=== PATIENT | female | born 1940 | race Caucasian/White ===

== ENCOUNTER 2017-09-04 10:09 | Emergency (ER) | payer OTHER, MEDICARE ==
[2017-09-04 10:14] VITALS: TEMP 98; BMI 21.4
--- NOTE | 2017-09-04 10:28 | PDOC ---
History of Present Illness - General Chief Complaint: Urinary Problem Stated Complaint: SENT BY PCP Time Seen by Provider: 09/04/17 10:27 History Source: Patient Exam Limitations: No Limitations - History of Present Illness Initial Comments: 09/04/17 12:33 Chief complaint: Hematuria, frequency, urgency and painful urination since 4 AM today History of present illness: Patient is a 77 year old female with history of hypertension here today complaining of hematuria, dysuria urgency and frequency that started this morning at 4 AM. Patient took one Cipro. Patient reports that she did have hematuria in the past. Patient is requesting that I speak with her primary care provider Dr. figueredo at [phone]. Patient denies any abdominal pain or any nausea, vomiting, back pain, chills or fever. Patient reports that since she urinated here she did not have any dysuria, just urgency and hematuria and frequency. Timing/Duration: intermittent Severity: moderate Associated Symptoms: reports: other (hematuria starting this morning with urgency, frequency, dysuria) Past History - Past Medical History Allergies/Adverse Reactions: Allergies Allergy/AdvReac Type Severity Reaction Status Date / Time No Known Allergies Allergy Verified 09/04/17 10:14 Home Medications: Ambulatory Orders Amlodipine Besylate [Norvasc -] 10 mg PO DAILY 09/04/17 Aspirin [ASA -] 81 mg PO DAILY 09/04/17 Calcium Carbonate/Vitamin D3 [Calcium 600 + Vit D Tablet] 1 each PO DAILY Cholecalciferol (Vitamin D3) [Vitamin D3] 3,000 unit PO DAILY 09/04/17 COPD: No HTN: Yes - Suicide/Smoking/Psychosocial Hx Smoking History: Never smoked Hx Alcohol Use: No Drug/Substance Use Hx: No Review of Systems - Review of Systems Able to Perform ROS?: Yes Constitutional: No: Symptoms Reported HEENTM: No: Symptoms Reported Respiratory: No: Symptoms reported Cardiac (ROS): No: Symptoms Reported ABD/GI: No: Symptoms Reported : Yes: Dysuria, Frequency, Hematuria, Urgency (since this morning ). No: Flank Pain Musculoskeletal: No: Symptoms Reported Integumentary: No: Symptoms Reported Neurological: No: Symptoms reported *Physical Exam - Vital Signs Last Vital Signs Temp Pulse Resp BP Pulse Ox 98.0 F 109 H 20 150/82 100 09/04/17 10:09 09/04/17 10:09 09/04/17 10:09 09/04/17 10:09 09/04/17 10:09 - Physical Exam General Appearance: Yes: Appropriately Dressed Respiratory/Chest: positive: Lungs Clear, Normal Breath Sounds. negative: Chest Tender, Respiratory Distress Cardiovascular: positive: Regular Rhythm, Regular Rate, S1, S2 Gastrointestinal/Abdominal: positive: Normal Bowel Sounds, Soft. negative: Tender, Organomegaly, Distended, Guarding, Rebound, Tenderness, Hepatomegaly, Spleenomegaly Musculoskeletal: positive: Normal Inspection. negative: CVA Tenderness, CVA Tenderness (R), CVA Tenderness (L) Integumentary: positive: Normal Color Neurologic: positive: Alert, Normal Response, Responsive ED Treatment Course - LABORATORY CBC & Chemistry Diagram: 09/04/17 12:49 09/04/17 12:49 Medical Decision Making - Medical Decision Making 09/04/17 12:36 Patient is a 77 year old female with history of hypertension here today complaining of hematuria, dysuria urgency and frequency that started this morning at 4 AM. Patient took one Cipro. Patient reports that she did have hematuria in the past. Patient is requesting that I speak with her primary care provider Dr. figueredo at [phone]. Patient denies any abdominal pain or any nausea, vomiting, back pain, chills or fever. Patient reports that since she urinated here she did not have any dysuria, just urgency and hematuria and frequency. R/O UTI R/O RENAL CALCULI R/O ABDOMINAL/PELVIC MASS PLAN: U/A URINE C & S NOW BMP cbc with diff Spoke with Dr. Figueredo patient's primary care provider at [phone]. He requests the patient have a CAT scan of abdomen and pelvis w/o contrast first to rule out pelvic/abdominal mass followed by IV contrast he would like to be called with results Pt. is stable enough to be Transferred to main ER charge nurse Moon and Dr. Luna aware *DC/Admit/Observation/Transfer Diagnosis at time of Disposition: Hematuria Qualifiers: Hematuria type: unspecified type Qualified Code(s): R31.9 - Hematuria, unspecified - Referrals Referrals: Samuel Figueredo [Primary Care Provider] - - Patient Instructions - Post Discharge Activity
[2017-09-04 11:29] LABS: URINE APPEARANCE CLOUDY; URINE BILIRUBIN NEGATIVE (NEGATIVE); URINE BLOOD 3+ (NEGATIVE); URINE COLOR LTYELLOW; URINE GLUCOSE (UA) NEGATIVE (NEGATIVE); URINE KETONE NEGATIVE (NEGATIVE); URINE NITRITE NEGATIVE (NEGATIVE); URINE PROTEIN NEGATIVE (NEGATIVE); URINE UROBILINOGEN NEGATIVE mg/dL (0.2-1.0)
[2017-09-04 12:55] LABS: URINE LEUK ESTERASE 2+ (NEGATIVE)
[2017-09-04 12:56] LABS: BASOPHIL 0.4 % (0-2.0); EOSINOPHIL 0.1 % (0-4.5); MCH 30.3 pg (25.7-33.7); MCHC 33.2 g/dl (32.0-36.0); MEAN PLT VOLUME 7.6 fl (7.5-11.1); PLATELET COUNT 261 K/MM3 (134-434); RDW 12.9 % (11.6-15.6); WHITE BLOOD COUNT 11.2 K/mm3 (4.0-10.0)
[2017-09-04 13:14] LABS: ANION GAP 2 (8-16); CALCIUM 8.9 mg/dL (8.5-10.1); CO2 33 mmol/L (21-32); CREATININE 0.5 mg/dL (0.55-1.02); GLUCOSE,RANDOM 107 mg/dL (74-106)
[2017-09-04 16:00] VITALS: BP 148/66; PULSE 91
--- NOTE | 2017-09-04 16:13 | PDOC ---
*Physical Exam - Vital Signs Last Vital Signs Temp Pulse Resp BP Pulse Ox 98.0 F 91 H 18 148/66 99 09/04/17 10:09 09/04/17 15:58 09/04/17 15:58 09/04/17 15:58 09/04/17 15:58 ED Treatment Course - LABORATORY CBC & Chemistry Diagram: 09/04/17 12:49 09/04/17 12:49 - ADDITIONAL ORDERS Additional order review: Laboratory Results 09/04/17 09/04/17 12:49 10:35 Sodium 141 Potassium 3.5 Chloride 106 Carbon Dioxide 33 H Anion Gap 2 L BUN 9 D Creatinine 0.5 L Random Glucose 107 H Calcium 8.9 Urine Color Ltyellow Urine Appearance Cloudy Urine pH 6.0 Ur Specific [place] 1.005 Urine Protein Negative Urine Glucose (UA) Negative Urine Ketones Negative Urine Blood 3+ H Urine Nitrite Negative Urine Bilirubin Negative Urine Urobilinogen Negative Ur Leukocyte Esterase 2+ H 09/04/17 12:49 RBC 4.41 MCV 91.0 MCHC 33.2 RDW 12.9 MPV 7.6 D Neutrophils % 87.0 H D Lymphocytes % 8.2 D Monocytes % 4.3 Eosinophils % 0.1 D Basophils % 0.4 Medical Decision Making - Medical Decision Making 09/04/17 16:11 Patient was transferred to the main ED from fast track by EBONY Balbuena. Patient was sent to the emergency department by her PCP Dr. Balderas. Dr. Balderas was concerned the patient had renal colic or possible malignancy given new onset hematuria. CT scan reveals possible cystitis but no evidence of kidney stones and no evidence of masses. UA with 2+ leuk esterase. I discussed all the results with Dr. Balderas who recommends that we treat with Bactrim DS twice a day for 10 days for cystitis and that he will see her on Saturday morning. I discussed the physical exam findings, ancillary test results and final diagnoses with the patient. I answered all of the patient's questions. The patient was satisfied with the care received and felt comfortable with the discharge plan and treatment plan. The patient will call their primary care physician within 24 hours to arrange follow-up and will return to the Emergency Department with any new, persistent or worsening symptoms. *DC/Admit/Observation/Transfer Diagnosis at time of Disposition: Hematuria Qualifiers: Hematuria type: unspecified type Qualified Code(s): R31.9 - Hematuria, unspecified - Referrals Referrals: Samuel Balderas [Primary Care Provider] - - Patient Instructions - Post Discharge Activity
== END 2017-09-04 16:45 | disposition home or self-care (01) ==
LOC: JERFT 10:09 → JER 10:09
DX: N30.00 Acute cystitis without hematuria (principal); I10 Essential (primary) hypertension
CPT/HCPCS: 36415; 74178-TC; 80048; 81003; 81015; 85025; 87086; 99283-25

== ENCOUNTER 2021-11-09 04:23 | Day surgery (SDC) | payer OTHER, MEDICARE ==
[2021-11-07 12:43] VITALS: BMI 22.1
[2021-11-09 08:54] VITALS: TEMP 97.5
[2021-11-09 09:40] VITALS: BP 143/65; PULSE 60
== END 2021-11-09 09:46 | disposition home or self-care (01) ==
LOC: JASU-ENDO 04:23
PROVIDERS: ATTEND Internal Medicine Gastroenterology
PROC: 0DBK8ZX Excision of Ascending Colon, Via Natural or Artificial Opening Endoscopic, Diagnostic (ICD-10-PCS; 2021-11-09)
PROC: 0DB78ZX Excision of Stomach, Pylorus, Via Natural or Artificial Opening Endoscopic, Diagnostic (ICD-10-PCS; 2021-11-09)
PROC: 0DBL8ZX Excision of Transverse Colon, Via Natural or Artificial Opening Endoscopic, Diagnostic (ICD-10-PCS; principal; 2021-11-09 08:00)
DX: Z12.11 Encounter for screening for malignant neoplasm of colon (principal); D12.2 Benign neoplasm of ascending colon; D12.3 Benign neoplasm of transverse colon; K29.70 Gastritis, unspecified, without bleeding; K21.9 Gastro-esophageal reflux disease without esophagitis; K31.9 Disease of stomach and duodenum, unspecified; K64.2 Third degree hemorrhoids; Z86.010 Personal history of colon polyps; I10 Essential (primary) hypertension
CPT/HCPCS: 88305-TC; 88342-TC

== ENCOUNTER 2025-03-25 06:07 | Day surgery (SDC) | payer OTHER, MEDICARE ==
[2025-03-19 15:27] VITALS: BMI 23.0
[2025-03-25 11:25] VITALS: TEMP 98
[2025-03-25 11:50] VITALS: PULSE 71
[2025-03-25 12:12] VITALS: BP 125/60; RESP 16
== END 2025-03-25 13:03 | disposition home or self-care (01) ==
LOC: JASU-ENDO 06:07
PROVIDERS: ATTEND Internal Medicine Gastroenterology
PROC: 0DBL8ZX Excision of Transverse Colon, Via Natural or Artificial Opening Endoscopic, Diagnostic (ICD-10-PCS; 2025-03-25)
PROC: 0DBH8ZX Excision of Cecum, Via Natural or Artificial Opening Endoscopic, Diagnostic (ICD-10-PCS; principal; 2025-03-25 09:30)
DX: Z12.11 Encounter for screening for malignant neoplasm of colon (principal); D12.0 Benign neoplasm of cecum; K63.5 Polyp of colon; K64.4 Residual hemorrhoidal skin tags; Z86.0101 Personal history of adenomatous and serrated colon polyps
CPT/HCPCS: 88305-TC